=== PATIENT | male | born 1970 | race Caucasian/White ===

== ENCOUNTER 2019-09-06 06:56 | Outpatient (CLI) | payer OTHER, SELFPAY ==
--- NOTE | 2019-09-06 07:36 | ECG_ITS ---
[facility] Test Date: 2019-09-06 Pat Name: Jose Raul Barbosa Department: Room: Gender: Male [employer] Detective: Deidra Redmond : 1970 Requested By: Ethan Diaz Order Number: [id number] Caden MD: Manpreet Andersen M.D. Interpretive Statements NAME OF STUDY: EXERCISE SESTAMIBI STRESS TEST INDICATION: Chest Pain, EXERCISE TREADMILL STRESS ORDERING PHYSICIAN: Ronak CLINICAL INFORMATION: Chest pain INTERPRETATION: 1. The patient exercised for 10 minutes and 58 seconds on a Nahid protocol. He reached a maximum heart rate of 151 beats per minute, which is 89 % of his maximum predicted heart rate. The test was stopped due to achieving the desired heart rate. 2. The baseline electrocardiogram reveals sinus rhythm and is a normal tracing. 3. With exercise, there were no ST segment changes to suggest ischemia. 4. The resting blood pressure was 153/86. The maximum blood pressure was 195/61. 5. At maximum exercise, the patient achieved 13.5 METs with a rate pressure product of 290. 6. The patient experienced no chest pain or arrhythmias during the examination. CONCLUSION: 1. Normal exercise treadmill test. 2. Average exercise capacity for age. 3. Normal blood pressure response to exercise. 4. Nuclear imaging to follow Electronically Signed On 09-06-2019 13:27:30 CDT by Manpreet Andersen M.D. [email or web address]
--- NOTE | 2019-09-06 07:37 | NMCV_ITS ---
NM kalpesh perf SPECT r/s* [id number] Jose Raul Barbosa Age: 49 Gender: M : 1970 Exam Date: 09/06/2019 08:07 Ordering Phys: Ethan Simons MD Technologist: FELICITAS Pina Exam Location: [facility] Indications: angina STRESS TEST Please see separate stress test report in [facility] for full findings IMAGE PROTOCOL Rest/Stress 1 Radiopharmaceutical Dose (mCi) Administration Site Administered by Rest: Tc-99m 10.6 IV FELICITAS Adams Sestamibi Stress:Tc-99m 32.5 IV FELICITAS Pina Sestamivalorie Rest: 06-Sep-2019 60 Discovery 630 Stress: 06-Sep-2019 30 Discovery 630 Radiopharmaceutical was injected at 85 % maximum heart rate. Images obtained in supine and prone position. SPECT RESULTS Technical Quality: Excellent Raw Data Analysis: Normal Image Corrections: No attenuation or motion correction applied Summed Stress Score: 1 Summed Rest Score: 0 Summed Difference Score: 1 PERFUSION FINDINGS Small sized perfusion abnormality of mild intensity of apical lateral wall. SPECT images demonstrate homogeneous tracer distribution throughout the myocardium on prone stress images. FUNCTIONAL RESULTS (calculated via Gated SPECT) Stress Image LV EF (%): 62 Stress EDV (mL):103 TID: 1.09 Stress ESV (mL):39 FUNCTIONAL FINDINGS: The left ventricle is normal in size. Transient Ischemia Dilatation of 1.1. There is normal left ventricular systolic function. The left ventricular ejection fraction is normal with a value of 62%. There is normal left ventricular wall thickening. Normal end diastolic and end systolic volumes. IMPRESSIONS 1. Myocardial perfusion imaging is normal. Attenuation artifact in apical lateral wall. 2. Overall left ventricular systolic function is normal without regional wall motion abnormalities. 3. The left ventricular ejection fraction is normal with a value of 62%. 4. No coronary ischemia noted on this study. Nathalia Baumann MD (Electronically Signed) Final Date: 07 September 2019 21:57 S
[2019-09-06 07:38] VITALS: BMI 26.9
[2019-09-06 09:01] VITALS: BP 180/76; PULSE 80
== END 2019-09-06 06:57 | disposition home or self-care (01) ==
PROVIDERS: Visit Provider Family Medicine
DX: R07.9 Chest pain, unspecified; I20.9 Angina pectoris, unspecified
CPT/HCPCS: 78452; 93017; A9500

== ENCOUNTER 2019-10-31 11:52 | Outpatient (CLI) | payer OTHER, SELFPAY ==
--- NOTE | 2019-10-31 11:55 | MR_ITS ---
WS: [id number] MRI RIGHT KNEE HISTORY: RIGHT KNEE PAIN COMPARISON: None available. Anterior cruciate ligament: Prior ACL repair. Orientation is slightly vertical but there is no signal abnormality within the ligament. Posterior cruciate ligament: Intact. Medial collateral ligament: Increased T2 signal surrounding the ligament. No full-thickness tear. Posterior lateral corner structures: Intact. Medial menisci: Abnormal signal extends through the posterior horn to the superior articular surface. Lateral meniscus: Abnormal signal in the posterior third of the meniscus. Signal dense through the me niscus and a radial diameter. Extensor mechanism: Distal quadriceps tendon and patellar tendons are intact. Fluid and soft tissue: Moderate suprapatellar joint effusion with mild loculation. No Zarate's cyst. Osseous and articular structures: Patellofemoral compartment: Normal. Medial compartment: No marrow edema. Mild narrowing of medial compartment with fissuring of the carti vinay. Lateral compartment: No marrow edema. Full-thickness 4 mm defect in the cartilage of the posterior fe moral condyle. Meniscus is partially extruded from the joint line. MR/MR knee RT wo con* [id number] IMPRESSION: 1. Prior ACL repair appears intact. 2. Abnormal signal in the posterior horn of the medial and lateral meniscus. F avor tears extending to the superior articular surfaces. 3. Moderate joint effusion. 4. Full-thickness 4 mm cartilage defect posterior lateral femoral condyle. 5. No marrow edema or fracture.
== END 2019-10-31 11:53 | disposition home or self-care (01) ==
LOC: RADSHAW 11:53
PROVIDERS: PCP Family Medicine; Visit Provider Family Medicine
DX: M25.561 Pain in right knee (principal); M25.461 Effusion, right knee
CPT/HCPCS: 73721

== ENCOUNTER 2021-12-14 09:28 | Outpatient (CLI) | payer OTHER, SELFPAY ==
--- NOTE | 2021-12-14 09:30 | USCV_ITS ---
Jose Raul Barbosa Age: 51 Gender: M : 1970 Exam Date: 12/14/2021 09:57 Ordering Phys: Vince Johnson MD Technologist: Jairon Barbosa [place] [facility] [place]: check for DVT- Right lower extrimity pain and swelling PROCEDURES: Venous duplex imaging was performed in only the right lower extremity. The following venous structures were evaluated: common femoral vein, profunda vein, proximal portion of the greater saphenous vein, superficial femoral vein, and the popliteal vein. In addition, the posterior tibial and peroneal trunk were evaluated. Serial compression, augmentation maneuvers, and spectral Doppler flow evaluation were performed. FINDINGS: Normal 2-D Doppler and augmentation and compressibility throughout the lower extremity venous structures. Additional imaging through the proximal calf veins also reveals no thrombus. Limited evaluation of the greater saphenous vein is patent with no thrombus.. CONCLUSIONS No evidence of right lower extremity DVT. Edenilson Espinoza MD (Electronically Signed) Final Date: 14 December 2021 12:01 S
== END 2021-12-14 09:29 | disposition home or self-care (01) ==
LOC: RAD 09:29
PROVIDERS: PCP Family Medicine; Visit Provider Family Medicine
DX: M79.604 Pain in right leg (principal); Z86.718 Personal history of other venous thrombosis and embolism; M79.89 Other specified soft tissue disorders
CPT/HCPCS: 93971

== ENCOUNTER → 2023-03-31 08:30 | Outpatient (BNVA) | payer OTHER, SELFPAY | PROVIDERS: PCP Family Medicine; Visit Provider Family Medicine | DX: Z51.81 Encounter for therapeutic drug level monitoring (principal); Z13.220 Encounter for screening for lipoid disorders; R73.09 Other abnormal glucose; R35.0 Frequency of micturition; N52.9 Male erectile dysfunction, unspecified | CPT/HCPCS: 80053; 80061; 83036; 84153; 84403; 85025 ==

== ENCOUNTER → 2023-07-26 11:39 | Outpatient (BNVA) | payer OTHER, SELFPAY | PROVIDERS: PCP Family Medicine; Visit Provider Family Medicine | DX: R73.09 Other abnormal glucose (principal); I10 Essential (primary) hypertension | CPT/HCPCS: 83036 ==

== ENCOUNTER → 2024-04-03 08:47 | Outpatient (BNVA) | payer OTHER, SELFPAY | PROVIDERS: PCP Family Medicine; Visit Provider Family Medicine | DX: Z12.5 Encounter for screening for malignant neoplasm of prostate (principal); Z00.00 Encounter for general adult medical examination without abnormal findings; Z86.711 Personal history of pulmonary embolism; Z13.220 Encounter for screening for lipoid disorders; R73.03 Prediabetes; Z51.81 Encounter for therapeutic drug level monitoring | CPT/HCPCS: 80053; 80061; 83036; 84153; 85025; 85610 ==